=== PATIENT | male | born 2000 | race Caucasian/White ===

== ENCOUNTER 2021-03-17 21:40 | Emergency (ER) | payer OTHER, SELFPAY ==
[2021-03-17] MEDS ORDERED: Ibuprofen 800 MG TAB ONE (22:51)
== END 2021-03-17 23:36 | disposition home or self-care (01) ==
LOC: MADERS 21:40
DX: S90.31XA Contusion of right foot, initial encounter (principal); S70.12XA Contusion of left thigh, initial encounter; S80.812A Abrasion, left lower leg, initial encounter; V89.2XXA Person injured in unspecified motor-vehicle accident, traffic, initial encounter

== ENCOUNTER 2022-07-17 15:26 | Emergency (ER) | payer SELFPAY | END 2022-07-17 16:26 | disposition home or self-care (01) | LOC: MADERS 15:26 | DX: R50.9 Fever, unspecified (principal); F17.200 Nicotine dependence, unspecified, uncomplicated | CPT/HCPCS: 99283 ==

== ENCOUNTER 2022-08-19 11:11 | Emergency (ER) | payer SELFPAY | END 2022-08-19 12:59 | disposition home or self-care (01) | LOC: MADERS 11:11 | DX: S16.1XXA Strain of muscle, fascia and tendon at neck level, initial encounter (principal); F17.200 Nicotine dependence, unspecified, uncomplicated; W22.8XXA Striking against or struck by other objects, initial encounter | CPT/HCPCS: 72125 ==